=== PATIENT | male | born 1980 | race African-American/Black ===

== ENCOUNTER 2016-11-28 18:09 | Emergency (ER) | payer OTHER ==
[~2016-11-28] VITALS: Ht 180.3 cm; Wt 97.5 kg
[2016-11-28] MEDS ORDERED: PREDNISONE 20 M20 MG PO (19:53)
[2016-11-28 20:21] VITALS: BP 128/84
== END 2016-11-28 20:24 | disposition home or self-care (01) ==
LOC: ER 18:09
DX: L23.5 Allergic contact dermatitis due to other chemical products (principal); T49.4X1A Poisoning by keratolytics, keratoplastics, and other hair treatment drugs and preparations, accidental (unintentional), initial encounter; F10.99 Alcohol use, unspecified with unspecified alcohol-induced disorder; Y92.89 Other specified places as the place of occurrence of the external cause